=== PATIENT | female | born 1995 | race Caucasian/White ===

== ENCOUNTER 2020-01-01 17:03 | Inpatient (IN) ==
[2020-01-01 17:36] LABS: Bilirubin,Urine Negative (Negative); Blood,Urine Negative (Negative); Clarity,Urine Cloudy (Clear); Color,Urine Yellow (Yellow); Glucose,Urine (UA) Normal (Normal); Ketones,Urine Trace mg/dL (Negative); Leukocyte Esterase,Urine Moderate (Negative); Nitrite,Urine Negative (Negative); Protein,Urine Trace mg/dL (Neg-Trace); Specific Gravity,Urine > 1.030 (1.010-1.025); Urobilinogen,Urine Normal (Normal)
[2020-01-01 17:39] LABS: Bacteria,Urine Few per hpf (None-Few); Squamous Epithelial Cell,Urine Many per lpf (None-Few)
[2020-01-01 17:43] LABS: Amphetamine Screen,Urine Negative ng/mL (Cutoff=1000); Barbiturate Screen,Urine Negative ng/mL (Cutoff=200); Benzodiazepines Screen,Urine Negative ng/mL (Cutoff=200); Cannabinoid Screen,Urine Negative ng/mL (Cutoff = 50); Cocaine Screen,Urine Negative ng/mL (Cutoff= 300); Opiate Screen,Urine Negative ng/mL (Cutoff=300); Phencyclidine Screen,Urine Negative ng/mL (Cutoff=25)
[2020-01-01 18:04] LABS: Basophils # 0.1 K/mcL (0.0-0.2); Basophils % 0.5 %; Eosinophils % 0.4 %; Hematocrit 41.9 % (35.3-44.9); Hemoglobin 13.3 g/dL (11.5-15.4); Immature Granulocytes % 0.4 % (0-4); Lymphocytes # 1.5 K/mcL (0.6-4.6); Lymphocytes % 14.5 %; Mean Corpuscular HGB Conc 31.7 g/dL (31.6-35.5); Mean Corpuscular Hemoglobin 26.2 pg (28.0-33.3); Mean Corpuscular Volume 82.6 fL (83.0-100.0); Mean Platelet Volume 10.8 fL (9.4-12.4); Monocytes % 9.1 %; Platelet Count 311 K/mcL (140-400); Red Blood Count 5.07 M/mcL (3.82-4.97); Red Cell Distribution Width 13.7 % (11.5-14.5); Segmented Neutrophils % 75.1 %; White Blood Count 10.6 K/mcL (4.3-11.1)
[2020-01-01 18:21] LABS: Acetaminophen < 10 mcg/mL (10-20); BUN/Creatinine Ratio 14 (6-26); Blood Urea Nitrogen 11 mg/dL (6-20); Calcium 9.7 mg/dL (8.6-10.3); Carbon Dioxide 25 mEq/L (23-29); Chloride 107 mEq/L (98-107); Ethanol < 10 mg/dL (Less than 10); Glucose 88 mg/dL (70-105); Osmolality,Calculated 287 (280-300); Potassium 4.3 mEq/L (3.5-5.1); Salicylate < 2.5 mg/dL (15.0-30.0); Sodium 139 mEq/L (136-145); eGFR For African Americans > 60 (> 60); eGFR For Non-African Americans > 60 (> 60)
[2020-01-01] MEDS ORDERED: MOM Conc 10 ML UD.LIQ PO PRN (19:37)
[2020-01-01] MEDS ORDERED: Haloperidol Lactate 5 MG/ML VIAL IM PRN (19:37)
[2020-01-01] MEDS ORDERED: haloperidoL 5 MG TABLET PO PRN (19:37)
[2020-01-01] MEDS ORDERED: *HR* LORazepam 1 MG TABLET PO PRN (19:37)
[2020-01-01] MEDS ORDERED: Mag Hydrox/Al Hydrox/Simeth 30 ML UDC PO PRN (19:37)
[2020-01-01] MEDS ORDERED: *HR* LORazepam 2 MG/ML VIAL IM PRN (19:37)
[2020-01-01] MEDS ORDERED: Acetaminophen 325 MG TABLET PO PRN (19:37)
[2020-01-01] MEDS: hydrOXYzine pamoate 25 MG CAPSULE PO PRN (22:19)
[2020-01-01] MEDS: traZODone 50 MG TABLET PO PRN (22:19)
[2020-01-02] MEDS: hydrOXYzine pamoate 25 MG CAPSULE PO PRN (20:54)
[2020-01-02] MEDS: traZODone 50 MG TABLET PO PRN (20:54)
[2020-01-03] MEDS: hydrOXYzine pamoate 25 MG CAPSULE PO PRN (20:25)
[2020-01-03] MEDS: traZODone 50 MG TABLET PO PRN (20:25)
[2020-01-04 08:07] VITALS: BP 115/78
== END 2020-01-04 10:45 | disposition home or self-care (01) | DRG 751 ==
LOC: EMEROOARM 17:03 → SUATTDRO 19:35 → 1ANU 19:35
PROVIDERS: ADMIT Psychiatry & Neurology Psychiatry; ATTEND Psychiatry & Neurology Psychiatry